=== PATIENT | female | born 1935 | race Caucasian/White ===

== ENCOUNTER 2017-11-25 13:06 | Emergency (ER) | payer MEDICARE, BC | END 2017-11-25 14:18 | disposition home or self-care (01) | LOC: SCSER 13:06 | DX: J06.9 Acute upper respiratory infection, unspecified (principal); B34.9 Viral infection, unspecified | CPT/HCPCS: 99283 ==

== ENCOUNTER 2018-12-02 14:25 | Emergency (ER) | payer MEDICARE, BC ==
--- NOTE | 2018-12-02 16:00 | RAD ---
CHEST 2 VIEWS: Date: 12/02/18 HISTORY: Chest pain. COMPARISON: None. FINDINGS: Lungs are clear. No pneumothorax or effusion. Cardiaca silhouette and mediastinal contours within nor mal limits. IMPRESSION: 1. No acute intrathoracic abnormality. 2. Likely calcified granuloma left lung apex. Recommend correlation with prior exams. If there are n one, follow-up could be obtained. POS: [facility]
== END 2018-12-02 16:32 | disposition home or self-care (01) ==
LOC: SCSER 14:25
DX: J06.9 Acute upper respiratory infection, unspecified (principal); I48.91 Unspecified atrial fibrillation; E03.9 Hypothyroidism, unspecified; I10 Essential (primary) hypertension
CPT/HCPCS: 71046; 93005